=== PATIENT | male | born 1990 | race Caucasian/White ===

== ENCOUNTER 2024-03-27 16:12 | Emergency (ER) | payer MEDICAID, OTHER ==
[~2024-03-27] VITALS: Ht 162.6 cm; Wt 68.0 kg
[2024-03-27] MEDS ORDERED: IBUP-1953 PO (17:14)
[2024-03-27 17:53] VITALS: BP 102/70; TEMP 97.9; O2SAT 97
== END 2024-03-27 17:54 | disposition home or self-care (01) ==
LOC: ER 16:29
DX: S92.812A Other fracture of left foot, initial encounter for closed fracture (principal); W22.8XXA Striking against or struck by other objects, initial encounter; Y93.I9 Activity, other involving external motion; Y92.89 Other specified places as the place of occurrence of the external cause; Y99.8 Other external cause status
CPT/HCPCS: 73630-TC